=== PATIENT | female | born 1980 | race Hispanic/Latino ===

== ENCOUNTER → 2017-07-11 | Outpatient (CLI) | payer OTHER ==
[~2017-07-11] MED LIST: LOSARTAN POTASS25 MG PO; PANTOPRAZOLE SO40 MG PO
--- NOTE | 2017-07-11 10:57 | Diagnostic Imaging Report ---
PROCEDURE:US RETROPERITONEAL ( KIDNEY ). COMPARISON:Patients [facility], CT, CT ABDOMEN/PELVIS WO, 03/28/2014, 13:27. INDICATIONS:Congenital renal cyst. TECHNIQUE: Grayscale color Doppler ultrasound FINDINGS: Right: 10.8 x 4.5 x 5.4 cm. Cortical thickness 1.8 cm. Left: 10.2 x 5.1 x 5.8 cm. Cortical thickness 2 cm. Both kidneys are normal. No conspicuous cysts. Unremarkable urinary bladder. Prevoid bladder volume 67 mL CONCLUSION: Normal renal ultrasound. No conspicuous renal cysts. Dictated by: Payam Neal M.D. on 07/11/2017 at 11:05 Electronically approved by: Payam Neal M.D. on 07/11/2017 at 11:05
== END ==
LOC: US 09:25
PROVIDERS: ATTEND Family Medicine
DX: Q61.00 Congenital renal cyst, unspecified (principal)
CPT/HCPCS: 76770

== ENCOUNTER 2022-11-14 08:43 | Outpatient (RCR) | payer OTHER | END 2022-11-18 | LOC: PT 08:43 | PROVIDERS: ATTEND Specialist | DX: S83.8X1A Sprain of other specified parts of right knee, initial encounter (principal) ==

== ENCOUNTER 2022-11-19 07:37 | Outpatient (RCR) | payer OTHER | END 2022-12-19 | LOC: PT 07:37 | PROVIDERS: ATTEND Specialist | DX: S83.31XA Tear of articular cartilage of right knee, current, initial encounter (principal) ==